=== PATIENT | female | born 1970 | race Caucasian/White ===

== ENCOUNTER 2020-06-18 12:50 | Emergency (ER) | payer MEDICAID ==
[2020-06-18] MEDS ORDERED: Ketorolac 60 MG/2 ML SDV IM ONE (15:52)
--- NOTE | 2020-06-18 15:59 | EDM.PDOC ---
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 Denies: Old Records History Limitations: Reports: Other (limited old records) - History of Present Illness INITIAL COMMENTS - FREE TEXT/NARRATIVE: 49 yo female with a pHx of fibromyalgia and who is currently on both gabapentin and Lyrica presents with a month's duration of progressive pain in her neck that radiates down her L arm. She was seen in [place] earlier on in the course and was told this was muscular and she was given a referral to PT which she did not do. Her primary is in [place]. She just moved to [place] so came here for this worsening pain. It hurts more to turn her head to the left. Recalls no acute injury. Does also have osteoarthritis. Has naproxen also for pain, has not taken any today as she thinks it does not help. 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) (See HPI) - Related Data Allergies Allergy/AdvReac Type Severity Reaction Status Date / Time adhesive Allergy Burning Verified 06/18/20 15:15 empagliflozin Allergy Vaginitis Verified 06/18/20 15:15 [From Jardiance] pioglitazone [From Actos] Allergy Swelling Verified 06/18/20 15:15 Home Meds: Home Meds Albuterol Sulfate [Albuterol Sulfate Hfa] 2 puff INH BID 06/18/20 [History] Amitriptyline HCl 1 tab PO DAILY 06/18/20 [History] DULoxetine [Cymbalta] 1 tab PO DAILY 06/18/20 [History] Gabapentin [Neurontin] 1 tab PO TID 06/18/20 [History] Hydrocodone/Acetaminophen [Hydrocodon-Acetaminoph 7.5-325] 1 tab PO QID 06/18/20 [History] Insulin Glargine,Hum.Rec.Anlog [Lantus Solostar] 40 units INJECT BEDTIME 06/18/20 [History] Liraglutide [Victoza] 1.8 mg INJECT DAILY 06/18/20 [History] Montelukast [Singulair] 1 tab PO BEDTIME 06/18/20 [History] Omeprazole 2 tab PO DAILY 06/18/20 [History] Pregabalin [Lyrica] 1 tab PO DAILY 06/18/20 [History] Simvastatin [Zocor] 1 tab PO DAILY 06/18/20 [History] clonazePAM [Clonazepam] 1 tab PO QID 06/18/20 [History] metFORMIN [Glucophage] 1 tab PO BID 06/18/20 [History] tiZANidine [Zanaflex] 1 tab PO TID 06/18/20 [History] Past Medical History Cardiovascular History: Reports: High Cholesterol Endocrine/Metabolic History: Reports: Diabetes, Type II Social & Family History - Tobacco Use Tobacco Use Status *Q: Never Tobacco User Review of Systems - Review of Systems Review Of Systems: See Below Constitutional: Reports: No Symptoms Musculoskeletal: Reports: Neck Pain, Shoulder Pain (left), Arm Pain (Left) Skin: Reports: No Symptoms Neurological: Reports: Numbness (entire left arm) ED EXAM, GENERAL - Physical Exam Exam: See Below Exam Limited By: No Limitations General Appearance: Alert, WD/WN, Mild Distress, Obese Eye Exam: Bilateral Eye: Normal Inspection Ears: Normal External Exam, Normal Canal, Hearing Grossly Normal Ear Exam: Bilateral Ear: Auricle Normal, Canal Normal Nose: Normal Inspection Throat/Mouth: Normal Inspection, Normal Lips, Normal Voice, No Airway Compromise Head: Atraumatic, Normocephalic Neck: Limited Range of Motion (can't turn to the left). No: Full Range of Motion Respiratory/Chest: No Respiratory Distress, Lungs Clear, Normal Breath Sounds, No Accessory Muscle Use Cardiovascular: Regular Rate, Rhythm, No Edema Back Exam: Normal Inspection Extremities: Normal Inspection, Normal Range of Motion, No Pedal Edema, Other (L shoulder and L elbow tender with palpation. ). No: Non-Tender, Pedal Edema Neurological: Alert, Oriented, CN II-XII Intact, Normal Cognition. No: No Motor/Sensory Deficits (reports subjective L arm numbness), Confused Psychiatric: Tearful Skin Exam: Warm, Dry, Intact, Normal Color, No Rash Course - Vital Signs Last Recorded V/S: Last Vital Signs Temp 35.9 C L 06/18/20 15:36 Pulse 111 H 06/18/20 15:36 Resp 12 06/18/20 15:36 BP 131/82 06/18/20 15:36 Pulse Ox 91 L 06/18/20 15:36 - Orders/Labs/Meds Orders: Active Orders 24 hr Category Date Time Status Cardiac Monitoring [RC] .As Directed Care 06/18/20 15:40 Active Meds: Medications Discontinued Medications Generic Name Dose Route Start Last Admin Trade Name Terry PRN Reason Stop Dose Admin Alprazolam 0.5 mg 06/18/20 16:34 06/18/20 16:40 Xanax PO 06/18/20 16:35 0.5 mg NOW ONE Administration Ketorolac Tromethamine 60 mg 06/18/20 15:52 06/18/20 15:59 Toradol IM 06/18/20 15:53 60 mg ONETIME ONE Administration - Radiology Interpretation Free Text/Narrative:: MRI of cervical spine-disc dz with protrusions of C4C5, C5C6, and C6C7 CT Results Date: 06/18/20 CT Results Time: 18:33 Departure - Departure Time of Disposition: 18:45 Disposition: Home, Self-Care 01 Condition: Fair Clinical Impression: Herniated disc, cervical - Discharge Information *PRESCRIPTION DRUG MONITORING PROGRAM REVIEWED*: No *COPY OF PRESCRIPTION DRUG MONITORING REPORT IN PATIENT DREW: No Instructions: Herniated Disk, [id number] Referrals: PCP,None [Primary Care Provider] - Forms: ED Department Discharge Additional Instructions: Take prednisone as directed with food until gone. Take [place] as directed for pain relief. Continue your usual meds. Someone will call you tomorrow with a referral appt to a [facility] neurosurgeon. If you need more or alternate pain medication see your provider in [place]. Sepsis Event Note (ED) - Evaluation Sepsis Screening Result: No Definite Risk - Focused Exam Vital Signs: Vital Signs Temp Pulse Resp BP Pulse Ox 06/18/20 15:36 35.9 C L 111 H 12 131/82 91 L 06/18/20 15:10 35.9 C L 111 H 12 131/82 91 L - My Orders Last 24 Hours: My Active Orders 06/18/20 15:40 Cardiac Monitoring [RC] .As Directed - Assessment/Plan Last 24 Hours: My Active Orders 06/18/20 15:40 Cardiac Monitoring [RC] .As Directed
[2020-06-18] MEDS ORDERED: ALPRAZolam 0.5 MG Tab PO ONE (16:34)
--- NOTE | 2020-06-18 18:10 | CRLMR ---
Indication: neck pain, left sided radiculopathy Technique: Noncontrast sagittal T1, T2, STIR and axial GRE sequences are provided. Comparison: No prior studies available for comparison at this institution. Findings: There is straightening and slight reversal of cervical spine alignment prevertebral heights are maintained. No aggressive osseous lesions. No acute fracture, dislocation, or subluxation. The craniocervical junction is unremarkable. Anterior osteophytes noted at C6-7. Findings at individual levels are noted as follows: C1-2: No spinal canal stenosis. C2-3: No spinal canal stenosis or neural foramina narrowing. C3-4: No spinal canal stenosis or neural foramina narrowing. C4-5: There is a moderate right paracentral disc protrusion that contacts the right ventral cord surface without cord deformity results in moderate right lateral recess and right neural foramina narrowing. No left neural foramina narrowing. C5-6: There is a large left paracentral disc protrusion that protrudes into the left lateral recess and contacts the ventral cord surface without cord deformity. Mild spinal canal narrowing and severe left lateral recess narrowing. Severe left neural foraminal narrowing due to the disc protrusion. Uncovertebral spurring bilaterally with mild right neural foramina narrowing. C6-7: There is a broad-based left paracentral disc protrusion that results in mild spinal canal narrowing and moderate left neural foraminal narrowing. C7-T1: No spinal canal stenosis or neural foramina narrowing. T1-2 and T2-3: No spinal canal stenosis or neural foramina narrowing. No abnormal intramedullary spinal cord signal. Impression: 1. There is straightening and reversal of cervical spine alignment. No acute osseous abnormality. 2. At C4-5 there is moderate right paracentral disc protrusion that results in contact with the ventral cord surface without cord deformity. Moderate right lateral recess and right neural foramina narrowing. 3. At C5-6 there is a large left paracentral disc protrusion that contacts the ventral cord surface without cord deformity and results in mild spinal canal narrowing, severe left lateral recess narrowing and left neural foraminal narrowing with likely impingement of left C6 nerve roots. 4. At C6-7 there is a left paracentral disc protrusion that results in mild spinal canal narrowing and moderate left neural foraminal narrowing. 5. No abnormal intramedullary spinal cord signal. Dictated by Murray Recio MD @ Jun 19 2020 8:43AM Signed by Dr. Murray Recio @ Jun 19 2020 8:51AM
== END 2020-06-18 18:55 | disposition home or self-care (01) ==
LOC: JP.ED 12:50
DX: M50.223 Other cervical disc displacement at C6-C7 level (principal); E11.9 Type 2 diabetes mellitus without complications; E78.00 Pure hypercholesterolemia, unspecified; Z91.048 Other nonmedicinal substance allergy status; Z88.8 Allergy status to other drugs, medicaments and biological substances; Z79.4 Long term (current) use of insulin; Z79.899 Other long term (current) drug therapy
CPT/HCPCS: 72141; 96372; 99283; A9270; J1885